=== PATIENT | male | born 1975 | race Caucasian/White ===

== ENCOUNTER → 2019-10-06 08:26 | Outpatient (BNVA) | payer MEDICARE, MEDICAID, SELFPAY | PROVIDERS: Family Provider Family Medicine; PCP Family Medicine; Visit Provider Family Medicine | DX: F32.9 Major depressive disorder, single episode, unspecified (principal); E83.119 Hemochromatosis, unspecified; Z13.6 Encounter for screening for cardiovascular disorders; R53.82 Chronic fatigue, unspecified | CPT/HCPCS: 80053; 80061; 82728; 83540; 83550; 84443; 85025 ==

== ENCOUNTER → 2020-04-07 08:15 | Outpatient (BNVA) | payer MEDICARE, MEDICAID, SELFPAY | PROVIDERS: Family Provider Family Medicine; PCP Family Medicine; Visit Provider Family Medicine | DX: E83.119 Hemochromatosis, unspecified (principal); N18.2 Chronic kidney disease, stage 2 (mild); F32.9 Major depressive disorder, single episode, unspecified; J30.2 Other seasonal allergic rhinitis; L82.1 Other seborrheic keratosis; F17.223 Nicotine dependence, chewing tobacco, with withdrawal; R35.1 Nocturia | CPT/HCPCS: 80053; 82728; 83550; 84153; 85025 ==

== ENCOUNTER → 2021-04-21 08:29 | Outpatient (BNVA) | payer MEDICARE, MEDICAID, SELFPAY | PROVIDERS: Family Provider Family Medicine; PCP Family Medicine; Visit Provider Family Medicine | DX: Z00.00 Encounter for general adult medical examination without abnormal findings (principal); E03.8 Other specified hypothyroidism; R35.1 Nocturia; G25.81 Restless legs syndrome; F32.9 Major depressive disorder, single episode, unspecified; K21.9 Gastro-esophageal reflux disease without esophagitis; J30.2 Other seasonal allergic rhinitis; Z13.6 Encounter for screening for cardiovascular disorders; F17.229 Nicotine dependence, chewing tobacco, with unspecified nicotine-induced disorders | CPT/HCPCS: 80053; 80061; 84153; 84443; 85025 ==

== ENCOUNTER → 2022-04-17 09:31 | Outpatient (BNVA) | payer MEDICARE, MEDICAID, SELFPAY | PROVIDERS: Family Provider Family Medicine; PCP Family Medicine; Visit Provider Family Medicine | DX: R35.1 Nocturia (principal); B35.1 Tinea unguium; Z13.6 Encounter for screening for cardiovascular disorders | CPT/HCPCS: 80053; 80061; 84153; 85025 ==

== ENCOUNTER 2022-04-28 06:00 | Outpatient (RCR) | payer MEDICARE, MEDICAID, SELFPAY | END 2022-05-05 23:59 | disposition home or self-care (01) | LOC: SPT 06:00 | PROVIDERS: PCP Family Medicine; Visit Provider Family Medicine | DX: S29.012A Strain of muscle and tendon of back wall of thorax, initial encounter (principal); X58.XXXA Exposure to other specified factors, initial encounter | CPT/HCPCS: 97110; 97140; 97161 ==

== ENCOUNTER 2022-05-06 06:00 | Outpatient (RCR) | payer MEDICARE, MEDICAID, SELFPAY | END 2022-06-05 23:59 | disposition home or self-care (01) | LOC: SPT 06:00 | PROVIDERS: PCP Family Medicine; Visit Provider Family Medicine | DX: S29.012D Strain of muscle and tendon of back wall of thorax, subsequent encounter (principal); X58.XXXD Exposure to other specified factors, subsequent encounter | CPT/HCPCS: 97032; 97110 ==

== ENCOUNTER → 2023-09-20 10:52 | Outpatient (BNVA) | payer MEDICARE, MEDICAID, SELFPAY | PROVIDERS: PCP Family Medicine; Visit Provider Family Medicine | DX: Z13.6 Encounter for screening for cardiovascular disorders (principal); R35.1 Nocturia; R68.82 Decreased libido; Z86.19 Personal history of other infectious and parasitic diseases; Z79.899 Other long term (current) drug therapy | CPT/HCPCS: 80053; 80061; 84153; 84403; 85025; 87522 ==

== ENCOUNTER 2023-12-27 14:04 | Emergency (ER) | payer MEDICARE, MEDICAID, SELFPAY ==
[2023-12-27 14:07] VITALS: BP 114/72; PULSE 66; RESP 16; TEMP 36.3; O2SAT 99; BMI 26.6
--- NOTE | 2023-12-27 14:09 | XR_ITS ---
WS: [id number] Portable AP upright chest, 12/27/2023 Clinical Data: dyspnea/cough Comparison: Two-view chest, 05/08/2008. Findings: No nodules, masses or effusions are seen. There is blunting of the right costophrenic angle probably from an old infection. The heart is normal. The pulmonary vascularity is not increased. No pneumonia or pneumothorax is seen. XR/XR chest 1V portable [id number] Impression: Negative chest.
--- NOTE | 2023-12-27 14:18 | ECG_ITS ---
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 Measurements Intervals [place] Rate: 65 P: 62 OK: 141 QRS: 10 QRSD: 108 T: 50 QT: 458 QTc: 477 Interpretive Statements SINUS RHYTHM WITH SINUS ARRHYTHMIA INCOMPLETE RIGHT BUNDLE BRANCH BLOCK [90+ ms QRS DURATION, TERMINAL R IN V1/V2, 40+ ms S IN I/aVL/V4/V5/V6] PROLONGED QT INTERVAL No previous ECG available for comparison Electronically Signed On 12-27-2023 17:07:43 CDT by Myron Painter M.D. [email or web address]
[2023-12-27 14:19] LABS: Basophils # 0.1 10^3/uL (0.0-0.1); Basophils % 0.6 %; Eosinophils # 0.5 10^3/uL (0.0-0.8); Eosinophils % 5.8 %; Hematocrit 29.3 % (37-53); Lymphocytes # 2.6 10^3/uL (0.8-4.8); Mean Corpuscular HGB Conc 32.8 g/dL (30-55); Mean Corpuscular Hemoglobin 33.1 pg (27-33); Mean Platelet Volume 10.4 fL (7.4-10.4); Monocytes # 0.6 10^3/uL (0.2-0.9); Monocytes % 7.9 %; Neutrophils # 4.18 10^3/uL (1.8-7.7); Neutrophils % 52.4 %; Nucleated Red Blood Cells % 0 %; Platelet Count 481 10^3/cmm (157-399); Red Cell Distribution Width 13.2 % (12.1-15.1); White Blood Count 7.97 10^3/uL (3.29-11.43)
--- NOTE | 2023-12-27 14:26 | W.ED.WEAKNES ---
HPI - Weakness General: Chief complaint: Weakness Stated complaint: weakness Time Seen by Provider: 12/27/23 14:05 Source: patient Mode of arrival: ambulatory History of Present Illness: 48-year-old male presents to the emergency room complaining of generalized weakness. Patient was recently discharged from [facility] for is treated for tib-fib fracture. This occurred when he was cutting some limbs to get his leg wrapped up in the road about 30 feet above the ground. He was airlifted to [facility] had a right tib-fib fracture. He was treated with an ORIF with carmela placement on the tibia per his report. Today the home health care nurse had come over to see him and he passed out. He did not strike his head he is not have any increased discomfort in the right lower leg. No swelling of the leg no chest pain no shortness of breath MD Complaint: generalized weakness Associated symptoms: Denies chest pain, chills, dysuria or fever(s) Review of Systems Const: Denies: fever(s) or chills Card: Denies: chest pain Resp: Denies: dyspnea GI: Denies: abdominal pain : Denies: dysuria, urinary frequency or urinary urgency Musc: Denies: neck pain or back pain Skin/Breast: Denies: rash PFSH ED PFSH: Medical History History of hepatitis C Treated Seasonal allergies Hemochromatosis Chronic radicular low back pain Insomnia, controlled GERD (gastroesophageal reflux disease) RLS (restless legs syndrome) COPD, mild Attention deficit disorder Major depression, chronic Surgical History History of circumcision History of lung surgery History of mandibular surgery Family History Other Cancer Congestive heart failure (CHF) Diabetes Stroke Social History Smoking and tobacco/nicotine status: current every day tobacco/nicotine user (chewing tobacco) smokeless tobacco Smokeless tobacco user: chewing tobacco Alcohol intake: current Alcohol intake frequency: holidays/special occasions only Substance/Drug Use: former Physical Exam Const: COMMON NORMALS: no acute distress GENERAL APPEARANCE: cooperative and comfortable ORIENTATION/CONSCIOUSNESS: Yes awake, Yes oriented to person, Yes oriented to place and Yes oriented to time HENMT: COMMON NORMALS: normocephalic, atraumatic and hearing grossly normal bilaterally HEAD & SCALP: normocephalic and atraumatic Resp: COMMON NORMALS: normal respiratory effort, No retractions, No use of accessory muscles and clear to auscultation bilaterally AUSCULTATION: clear to auscultation bilaterally Cardio: COMMON NORMALS: regular rate, regular rhythm and No murmurs present (Cardio) RATE: regular rate RHYTHM: regular rhythm GI: COMMON NORMALS: Soft to palpation and No hepatosplenomegaly present AUSCULTATION: Yes normoactive bowel sounds PALPATION: Yes Soft to palpation, No Tenderness to palpation present (GI), No Guarding due to palpation present (GI) and Yes No hepatosplenomegaly present Extremity: COMMON NORMALS: normal to inspection, capillary refill normal, no clubbing, cyanosis or edema, no calf tenderness and no pedal edema Neuro: SENSORIUM/ORIENTATION: Yes oriented to person, Yes oriented to place and Yes oriented to time Skin: COMMON NORMALS: no rashes or lesions noted GENERAL SKIN EXAM: no rashes or lesions noted Course Vital Signs: Vital signs: Vital Signs Temperature 97.4 F L 12/27/23 14:07 Pulse Rate 70 12/27/23 15:07 Respiratory Rate 16 12/27/23 14:07 Blood Pressure 119/73 12/27/23 15:07 Pulse Oximetry 87 L 12/27/23 15:07 Oxygen Delivery Me thod Room Air 12/27/23 15:07 MDM - Weakness Medical Decision Making Dressing removed from the leg no significant edema wound well-healed there was a lot of dried blood on the dressing and in the anterior tibia there is some superficial loss of skin that had stuck to the dressing 1 as we tried to remove it we had wet it prior to despite this is still did peel off a little bit of skin. Suspect patient had a little orthostatic episode from his anemia from her recent surgery. He is feeling much better after the fluids would likely go home discharge him home with the same medications wound care apply topical antibiotic ointment and change dressing once daily follow-up with Dr Blanchard within the week to recheck hemoglobin and follow-up with orthopedic surgery as planned. Keep same restrictions on activity as advised by orthopedic surgery. Medical Records I reviewed the patient's medical records. Lab Data I reviewed the patient's lab results. 12/27/23 13:50 12/27/23 13:50 Radiology Impressions Chest X-Ray 12/27/23 14:09 Impression: Negative chest. Laboratory Results WBC 7.97 10^3/uL (3.29-11.43) 12/27/23 13:50 RBC 2.90 10^6/uL (3.85-5.65) L 12/27/23 13:50 Hgb 9.60 g/dL (11.27-16.99) L 12/27/23 13:50 Hct 29.3 % (37-53) L 12/27/23 13:50 MCV 101.0 fl (82-101) 12/27/23 13:50 MCH 33.1 pg (27-33) H 12/27/23 13:50 MCHC 32.8 g/dL (30-55) 12/27/23 13:50 RDW 13.2 % (12.1-15.1) 12/27/23 13:50 Plt Count 481 10^3/cmm (157-399) H 12/27/23 13:50 MPV 10.4 fL (7.4-10.4) 12/27/23 13:50 Neut % (Auto) 52.4 % 12/27/23 13:50 Lymph % (Auto) 33.0 % 12/27/23 13:50 [place] % (Auto) 7.9 % 12/27/23 13:50 Eos % (Auto) 5.8 % 12/27/23 13:50 Baso % (Auto) 0.6 % 12/27/23 13:50 Neut # (Auto) 4.18 10^3/uL (1.8-7.7) 12/27/23 13:50 Lymph # (Auto) 2.6 10^3/uL (0.8-4.8) 12/27/23 13:50 [place] # (Auto) 0.6 10^3/uL (0.2-0.9) 12/27/23 13:50 Eos # (Auto) 0.5 10^3/uL (0.0-0.8) 12/27/23 13:50 Baso # (Auto) 0.1 10^3/uL (0.0-0.1) 12/27/23 13:50 Nucleated RBC % (auto) 0 % 12/27/23 13:50 Nucleated RBCs # 0.0 /100WBC 12/27/23 13:50 Sodium 140 mmol/L (136-145) 12/27/23 13:50 Potassium 4.4 mmol/L (3.5-5.1) 12/27/23 13:50 Chloride 104 mmol/L (98-107) 12/27/23 13:50 Carbon Dioxide 28 mmol/L (22-29) 12/27/23 13:50 Anion Gap 12.4 (5-19) 12/27/23 13:50 BUN 23 mg/dL (6-20) H 12/27/23 13:50 Creatinine 0.8 mg/dL (0.7-1.2) 12/27/23 13:50 GFR Calculation 103.2 mL/min (90-130) 12/27/23 13:50 Glucose 120 mg/dL (65-115) H 12/27/23 13:50 Calculated Osmolality 295 mOsm/kg (285-295) 12/27/23 13:50 Calcium 8.5 mg/dL (8.5-10.5) 12/27/23 13:50 Total Bilirubin 0.3 mg/dL (0.15-1.2) 12/27/23 13:50 AST 19 U/L (0-40) 12/27/23 13:50 ALT 11 U/L (0-41) 12/27/23 13:50 Alkaline Phosphatase 86 U/L (40-130) 12/27/23 13:50 Troponin T Baseline 7 ng/L (0-15) 12/27/23 13:50 Troponin T 120 Minute 6.61 ng/L (0-15) 12/27/23 15:55 Delta Troponin T -0.39 ABS# (0-10) L 12/27/23 15:55 Total Protein 6.6 g/dL (6.6-8.7) 12/27/23 13:50 Albumin 3.8 g/dL (3.5-5.2) 12/27/23 13:50 Globulin 2.8 g/dL (1.3-4.6) 12/27/23 13:50 Urine Color Yellow (Yellow) 12/27/23 15:43 Urine Appearance Clear (CLEAR) 12/27/23 15:43 Urine pH 6 (5-7) 12/27/23 15:43 Ur Specific [place] 1.025 (1.005-1.030) 12/27/23 15:43 Urine Protein Neg (Negative) 12/27/23 15:43 Urine Glucose (UA) Norm (Normal) 12/27/23 15:43 Urine Ketones Negative (Negative) 12/27/23 15:43 Urine Blood Neg (Negative) 12/27/23 15:43 Urine Nitrate Negative (Negative) 12/27/23 15:43 Urine Bilirubin Neg (Negative) 12/27/23 15:43 Urine Urobilinogen Norm mg/dL (Negative) 12/27/23 15:43 Ur Leukocyte Esterase Negative (Negative) 12/27/23 15:43 All radiology interpretation(s) finalized by discharge Discharge Plan Discharge Patient Disposition: Home Clinical Impression: Syncope, Anemia, History of fracture of tibia Condition: Stable Prescriptions: New mupirocin 2 % ointment 1 applic topical DAILY Qty: 50 0RF hydrocodone-acetaminophen 5-325 mg tablet 1 tab PO Q6H PRN (Reason: pain) Qty: 10 0RF No Action naproxen sodium [Aleve] 220 mg tablet 220 mg PO BID PRN mupirocin 2 % ointment 1 applic topical BID PRN (Reason: Apply when bandaging) 5 Days Qty: 22 0RF albuterol sulfate 90 mcg/actuation HFA aerosol inhaler See Rx Instructions .ROUTE .COMPLEX Qty: 6.7 0RF Dose Instruction: INHALE 2 PUFFS BY MOUTH EVERY 6 HOURS NEEDED FOR BRONCHOSPASM Rx Instructions: INHALE 2 PUFFS BY MOUTH EVERY 6 HOURS NEEDED FOR BRONCHOSPASM levocetirizine 5 mg tablet See Rx Instructions .ROUTE .COMPLEX Qty: 90 1RF Dose Instruction: TAKE 1 TABLET BY MOUTH EVERY DAY Rx Instructions: TAKE 1 TABLET BY MOUTH EVERY DAY sertraline 100 mg tablet See Rx Instructions .ROUTE .COMPLEX Qty: 180 1RF Dose Instruction: TAKE 2 TABLETS BY MOUTH EVERY DAY Rx Instructions: TAKE 2 TABLETS BY MOUTH EVERY DAY montelukast 10 mg tablet See Rx Instructions .ROUTE .COMPLEX Qty: 90 1RF Dose Instruction: TAKE 1 TABLET BY MOUTH EVERY DAY Rx Instructions: TAKE 1 TABLET BY MOUTH EVERY DAY pantoprazole 40 mg tablet,delayed release (DR/EC) See Rx Instructions .ROUTE .COMPLEX Qty: 90 1RF Dose Instruction: TAKE 1 TABLET BY MOUTH EVERY DAY Rx Instructions: TAKE 1 TABLET BY MOUTH EVERY DAY ropinirole 0.5 mg tablet See Rx Instructions .ROUTE .COMPLEX Qty: 270 1RF Dose Instruction: TAKE 1 TABLET BY MOUTH AT NOON AND TAKE 2 TABLETS BY MOUTH AT BEDTIME Rx Instructions: TAKE 1 TABLET BY MOUTH AT NOON AND TAKE 2 TABLETS BY MOUTH AT BEDTIME gabapentin 600 mg tablet See Rx Instructions .ROUTE .COMPLEX Qty: 270 1RF Dose Instruction: TAKE 1 TABLET BY MOUTH THREE TIMES A DAY Rx Instructions: TAKE 1 TABLET BY MOUTH THREE TIMES A DAY sildenafil (pulm.hypertension) 20 mg tablet 20 mg PO .COMPLEX Qty: 30 3RF Rx Instructions: Take 1-5 pills one hour before sex on an empty stomach Discharge Orders: Discharge ED (Routine); Ordered 12/27/23 Ordered By: Rosendo Larose Referrals: Dipika Blanchard DO [Primary Care Provider] - Discharge Diet: Usual diet Discharge Activity: Limit activity as instructed Patient Instructions: Opioid Safety, Pain Management Activity Restrictions/Additional Instructions: Thank you for choosing [facility] for your healthcare needs today. Please realize this is an emergency room and that we are providing you with a medical screening exam and this may not be complete and all inclusive of all the testing and or work up that you may need to determine your ailment or severity of your illness. It is very important that you follow up as instructed or that you return to the Emergency Department should you have concerns or if your condition changes or worsens in any way. You were seen today after syncopal episode at your home. Your hemoglobin is low suspect this is due to your recent surgery on the leg fracture. You should change the dressings on your right lower leg daily. Apply topical antibiotic ointment prior to placing the dressings on the leg. Keep your appointment with orthopedic surgery as previously scheduled. Follow-up with Dr. Blanchard as scheduled you should have a recheck hemoglobin when you are seen there. If you have any worsening symptoms return to the emergency room. Coding Level of Care Code ED Director Career for Rosanna Olvera
[2023-12-27 14:34] LABS: Troponin(5th) Baseline 7 ng/L (0-15)
[2023-12-27 14:37] LABS: Alanine Aminotransferase 11 U/L (0-41); Albumin Level 3.8 g/dL (3.5-5.2); Alkaline Phosphatase 86 U/L (40-130); Blood Urea Nitrogen 23 mg/dL (6-20); Calcium 8.5 mg/dL (8.5-10.5); Carbon Dioxide 28 mmol/L (22-29); Chloride 104 mmol/L (98-107); Creatinine Clr Calc Pharmacy 112.6112; Globulin 2.8 g/dL (1.3-4.6); Glomerular Filtration Rate 103.2 mL/min (90-130); Glucose 120 mg/dL (65-115); Osmolality Calculated 295 mOsm/kg (285-295); Sodium 140 mmol/L (136-145); Total Bilirubin 0.3 mg/dL (0.15-1.2); Total Protein 6.6 g/dL (6.6-8.7)
[2023-12-27 14:41] LABS: Anion Gap 12.4 (5-19); Aspartate Amino Transferase 19 U/L (0-40); Potassium 4.4 mmol/L (3.5-5.1)
[2023-12-27 15:07] VITALS: BP 119/73; PULSE 70; O2SAT 87
[2023-12-27 15:52] LABS: Add Urine Microscopic? NO; Charge for UA Resulting for Rev
[2023-12-27 16:02] LABS: Bilirubin Urine Neg (Negative); Blood Urine Neg (Negative); Glucose Urine UA Norm (Normal); Ketones Urine Negative (Negative); Leukocyte Esterase Urine Negative (Negative); Nitrate Urine Negative (Negative); Protein Urine Neg (Negative); Specific Gravity, Urine 1.025 (1.005-1.030); Urine Appearance Clear (CLEAR); Urine Color Yellow (Yellow); Urobilinogen Urine Norm (Negative); pH Urine 6 (5-7)
[2023-12-27] MEDS: sodium chloride 0.9% 1,000 ML 999 ML IV (16:02)
--- NOTE | 2023-12-27 16:12 | ECG_ITS ---
[facility] Test Date: 2023-12-27 Pat Name: Mode Booth Department: Room: Gender: Male Commander Internal Affairs: : 1975 Requested By: Rosendo Rondon Order Number: [id number] Rosana MD: Myron Painter M.D. Measurements Intervals [place] Rate: 63 P: 70 MA: 141 QRS: 26 QRSD: 110 T: 59 QT: 463 QTc: 476 Interpretive Statements SINUS RHYTHM POSSIBLE RIGHT VENTRICULAR CONDUCTION DELAY [RSR (QR) IN V1/V2] PROLONGED QT INTERVAL Compared to ECG 12/27/2023 14:18:28 Sinus arrhythmia no longer present Incomplete right bundle-branch block no longer present Electronically Signed On 12-27-2023 17:11:27 CDT by Myron Painter M.D. [email or web address]
[2023-12-27 16:39] LABS: Troponin 5 2HR 6.61 ng/L (0-15); Troponin 5 2HR Delta -0.39 ABS# (0-10)
[2023-12-27] MEDS: bacitracin ointment Pkt 1 EACH TOPICAL (17:30)
[2023-12-27 17:40] VITALS: BP 119/73; PULSE 70; RESP 16; TEMP 36.3; O2SAT 87
== END 2023-12-27 17:42 | disposition home or self-care (01) ==
PROVIDERS: Emergency Provider Family Medicine; PCP Family Medicine
DX: R55 Syncope and collapse (principal); D64.9 Anemia, unspecified; F17.220 Nicotine dependence, chewing tobacco, uncomplicated; Z86.19 Personal history of other infectious and parasitic diseases; J44.9 Chronic obstructive pulmonary disease, unspecified; Z98.890 Other specified postprocedural states
CPT/HCPCS: 36415; 71045; 80053; 81003; 84484; 85025; 93005; 96360; 99285; J7030